=== PATIENT | male | born 1965 | race Caucasian/White ===

== ENCOUNTER 2018-01-27 14:22 | Emergency (ER) | payer OTHER ==
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
--- NOTE | 2018-01-27 15:34 | CT Report ---
Reason: head inj Procedure Date: 01/27/2018 Accession Number: [id number] / [id number] Procedure: CT - Head W/O CPT Code: FULL RESULT: EXAM: CT HEAD EXAM DATE: 01/27/2018 03:02 PM. CLINICAL HISTORY: Head injury. COMPARISON: None. TECHNIQUE: Multiaxial CT images were obtained from the foramen magnum to the vertex. Reformats: Sagittal and coronal. IV contrast: None. In accordance with CT protocol optimization, one or more of the following dose reduction techniques were utilized for this exam: automated exposure control, adjustment of mA and/or KV based on patient size, or use of iterative reconstructive technique. FINDINGS: Parenchyma: No intraparenchymal hemorrhage. No evidence of mass, midline shift, or CT findings of acute infarction. Coulter-white differentiation is distinct. Extraaxial Spaces: Normal for age. No subdural or epidural collections identified. Ventricles: Normal in size and position. Sinuses and Orbits: Imaged paranasal sinuses, orbits, and mastoids show no significant abnormality. Bones: No evidence of fracture or calvarial defect. Other: Likely sebaceous cyst at the vertex measuring 13 mm. IMPRESSION: Unremarkable noncontrast head CT. No intracranial bleed or mass-effect. RADIA
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
--- NOTE | 2018-01-27 15:50 | XRAY Report ---
Reason: ankle inj Procedure Date: 01/27/2018 Accession Number: [id number] / [id number] Procedure: XR - Ankle 3 View RT CPT Code: FULL RESULT: EXAM: RIGHT ANKLE RADIOGRAPHY EXAM DATE: 01/27/2018 03:15 PM. CLINICAL HISTORY: Pain after ankle injury. COMPARISON: None. TECHNIQUE: 3 views. FINDINGS: Bones: Avulsion type fracture of the lateral margin of the lateral malleolus with a prominent 12 x 3 mm ossific fragment. Additional small ossific densities lateral to the talus. Joints: Normal. No effusion. No subluxations. The ankle mortise is normally aligned. Soft Tissues: Lateral soft tissue swelling. IMPRESSION: Lateral soft tissue swelling with avulsion type fractures from the lateral margin of the lateral malleolus as well as the lateral talus. RADIA
--- NOTE | 2018-01-27 15:53 | XRAY Report ---
Reason: hand inj Procedure Date: 01/27/2018 Accession Number: [id number] / [id number] Procedure: XR - Hand 3 View RT CPT Code: FULL RESULT: EXAM: RIGHT HAND RADIOGRAPHY EXAM DATE: 01/27/2018 03:15 PM. CLINICAL HISTORY: Pain after hand injury. COMPARISON: None. TECHNIQUE: 3 views. FINDINGS: Bones: Deformity of the fifth metacarpal without acute fracture plane. 2 mm ossific fragment at the medial margin of the distal radial metaphysis. Joints: Normal. No subluxations. Soft Tissues: Normal. No soft tissue swelling. IMPRESSION: 1. 2 mm ossific fragment at the medial margin of the distal radius. This appears corticated and suggests an old fracture or small loose body. Clinical correlation for point tenderness at this level. 2. Old boxer's type fracture fifth metacarpal. RADIA
[2018-01-27] MEDS ORDERED: IBUPROFEN 800 MG TABLET PO STA (15:55)
[2018-01-27 16:20] VITALS: BP 138/90
== END 2018-01-27 16:20 | disposition home or self-care (01) ==
LOC: ED 14:22
DX: S92.101A Unspecified fracture of right talus, initial encounter for closed fracture (principal); S82.831A Other fracture of upper and lower end of right fibula, initial encounter for closed fracture; S09.90XA Unspecified injury of head, initial encounter; S13.9XXA Sprain of joints and ligaments of unspecified parts of neck, initial encounter; L72.3 Sebaceous cyst; S60.221A Contusion of right hand, initial encounter; V86.56XA Driver of dirt bike or motor/cross bike injured in nontraffic accident, initial encounter
CPT/HCPCS: 29515; 70450; 72125; 73130; 73610; 99283; A9270

== ENCOUNTER 2021-01-20 14:37 | Outpatient (CLI) | payer OTHER ==
--- NOTE | 2021-01-20 17:03 | MRI Report ---
PROCEDURE: Brain W/O INDICATIONS: HEADACHE TECHNIQUE: Noncontrast axial T1 spin echo, axial T2 fast spin echo, sagittal and axial FLAIR, coronal T2 fast sp in echo, axial gradient echo, axial diffusion and ADC through the brain. COMPARISON: Correlation is made with prior head CT, 01/27/2018 FINDINGS: Image quality: Excellent. CSF Spaces: Basal cisterns are patent. No extra-axial fluid collections. Ventricles are normal in size and shape. Brain: No intracranial masses or hemorrhage. Coulter/white matter interface is normal. Brainstem appe ars normal. Diffusion-weighted images demonstrate no acute ischemic insult. No chronic ischemic ins ults. Normal intravascular flow voids are present. Skull and face: Calvarium has normal marrow signal. Bilateral exophthalmos is seen. No silvana orbital masses can be seen. The extraocular muscles demonstrate a normal, symmetric appearance. There does a ppear to be a preponderance of intraorbital fat. Sinuses: Sinuses and mastoids are clear. IMPRESSION: A cause of headache cannot be seen on these images. Unremarkable intracranial MRI for age. Bilateral exophthalmos can be seen, which appears to be secondary to prominent intraorbital fat. No m asses or extraocular muscle abnormality can be seen. Reviewed by: Martín Daniels MD on 01/20/2021 4:02 PM [place] Approved by: Martín Daniels MD on 01/20/2021 4:02 PM [facility] Station ID: [id number]
== END 2021-01-20 14:38 | disposition home or self-care (01) ==
LOC: DI 14:37
PROVIDERS: ATTEND Family Medicine
DX: R51.9 Headache, unspecified (principal); H05.20 Unspecified exophthalmos

== ENCOUNTER 2022-06-02 15:41 | Outpatient (CLI) | payer OTHER ==
--- NOTE | 2022-06-03 10:58 | MRI Report ---
PROCEDURE: CERVICAL SPINE WO INDICATIONS: CERVICAL RADICULOPATHY TECHNIQUE: Noncontrast sagittal T1 spin echo and T2 fast spin echo, sagittal STIR, foraminal oblique sagittal T2 fast spin echo, and axial gradient echo or T2 fast spin echo through the cervical spine. COMPARISON: CT dated 01/27/2018. FINDINGS: Image quality: Excellent. Alignment and Curvature: There is loss of normal cervical lordosis. 2 mm of retrolisthesis of C4 on C5, C5 on C6, and C6 on C7. Bone Marrow: Marrow demonstrates normal overall signal. Mild reactive signal throughout the endplat es of the cervical and upper thoracic spine, greatest in degree at C4-C5, C5-C6, and C6-C7. Spinal Cord: Visualized spinal cord has normal size and signal. No cerebellar tonsillar herniation. Paraspinous Soft Tissues: No paravertebral masses. Prevertebral soft tissues are normal in thicknes s. C2-C3: Mild disc desiccation and diffuse disc bulge. Mild facet and uncovertebral hypertrophy bilate rally. Mild canal stenosis. Mild bilateral foraminal stenosis. C3-C4: Mild disc desiccation and diffuse disc bulge. Mild facet and uncovertebral hypertrophy bilat erally. Mild canal stenosis. Moderate bilateral foraminal stenosis. C4-C5: Mild disc desiccation and diffuse disc bulge. Mild facet and uncovertebral hypertrophy. Mild canal stenosis. Moderate left and severe right foraminal stenosis. Right C5 nerve root compression. C5-C6: Mild disc height loss and desiccation. Mild diffuse disc bulge. Mild facet and uncovertebral hypertrophy bilaterally. Moderate canal stenosis. Severe bilateral foraminal stenosis with bilateral C6 nerve root compression. C6-C7: Moderate disc height loss and desiccation. Mild diffuse disc bulge. Mild facet and uncoverteb ral hypertrophy bilaterally. Mild canal stenosis. Moderate bilateral foraminal stenosis. C7-T1: Mild disc desiccation. No significant canal, nor foraminal stenosis. IMPRESSION: 1. Multilevel degenerative disc and facet disease, as well as uncovertebral hypertrophy. 2. Multilevel canal stenoses, worst at C5-C6 where there is moderate canal stenosis. 3. Multilevel foraminal stenoses, worst at C4-C5 and C5-C6, where there is associated intraforaminal nerve root compression. Recommend correlation with clinical symptoms to ascertain relevance of these findings. Reviewed by: Joy Sam MD on 06/03/2022 10:56 AM PDT Approved by: Joy Sam MD on 06/03/2022 10:56 AM PDT Station ID: [id number]
== END 2022-06-02 15:42 | disposition home or self-care (01) ==
LOC: DI 15:41
PROVIDERS: ATTEND Orthopaedic Surgery
DX: M47.22 Other spondylosis with radiculopathy, cervical region (principal); M48.02 Spinal stenosis, cervical region; M50.31 Other cervical disc degeneration, high cervical region